=== PATIENT | male | born 1990 | race Caucasian/White ===

== ENCOUNTER 2016-07-30 02:16 | Observation (INO) | payer SELFPAY ==
[~2016-07-30] VITALS: Ht 175.3 cm; Wt 85.5 kg
--- NOTE | ~2016-07-30 | DS ---
PATIENT'S NAME: FLOWER CASTILLO [facility] AGE: 26 Y [address] ROOM: [address] [place], [place] [address] LOCATION: GPCU ADMIT DATE: 07/30/2016 Discharge Summary DISCHARGE DATE: 07/31/2016 FAMILY PHYSICIAN: Robbi Ramirez MD ATTENDING PHYSICIAN: Juan Fiore V PRINCIPAL DIAGNOSES: 1. Marueno and trazodone overdose. 2. Intentional suicide overdose. 3. History of bipolar disorder. HOSPITAL COURSE: A 26-year-old gentleman with a past medical history of bipolar disorder and suicide attempt, who was admitted to the [facility] after he took 40 tablets of 300 mg of lithium and 10 tablets of 100 mg of trazodone tablets for suicide attempt. Within 2 hours, activated charcoal was administered. Initial lithium levels were 3.1. He was admitted to the hospital for hemodynamic support. He was given intravenous IV fluids. One-to-one sitter was placed. Serial levels of lithium were obtained and on discharge lithium level was 0.6. He remained actively suicidal within the course of the hospitalization. The lab work was within normal limits. Psych consult was placed for Larry Calle for inpatient admission for this suicide attempt. DISCHARGE MEDICATIONS: None. These will all be reconciled and restarted by the psychiatrist at the [facility]. ACTIVITY: As tolerated. DIET: Regular diet. HEMODYNAMICS ON DISCHARGE: Stable. MD DOMINGO WOODALL/aleena /[id number] d: 08/01/16 0206 t: 08/06/16 1507, DISCHARGE SUMMARY
--- NOTE | ~2016-07-30 | HP ---
PATIENT'S NAME: FLOWER CASTILLO [facility] AGE: 26 Y [address] ROOM: [place] [address] LOCATION: GPCU ADMIT DATE: 07/30/2016 History & Physical DISCHARGE DATE: FAMILY PHYSICIAN: Robbi Ramirez MD ATTENDING PHYSICIAN: KEVIN BARRIENTOS V DATE OF SERVICE: CHIEF COMPLAINT: Intentional overdose. HISTORY OF PRESENT ILLNESS: The patient is a 26-year-old male with past medical history of bipolar II as well as prior suicide attempts. He had approximately five or six alcoholic beverages earlier last night and subsequently took the rest of his lithium and trazodone tablets. He approximates that he had approximately 40 of the 300 mg lithium and 10 of the 100 mg trazodone tablets. Subsequently to that he made a phone call to the family member and was taken to the ER at [facility]. There he was neurological intact but was found to have a lithium level of 4.48. Other substances were negative. He was transferred to [facility] for possibility of hemodialysis. At this point, the patient denies any nausea, vomiting, chest pain, shortness of breath, tremulous, anxiety, or hallucinations. In fact, he appears quite comfortable. He also denies any active suicidal ideations. REVIEW OF SYSTEMS: All systems have been reviewed and are negative aside from pertinent positives mentioned above. PAST MEDICAL HISTORY: Significant for type II bipolar as well as prior history of overdose, psychiatric hospitalization, as well as a history of dialysis due to "hydrocodone" overdose. SOCIAL HISTORY: The patient smokes approximately half a pack a day. He endorses social alcohol use and denies any illicit substance use. He resides with his boyfriend. CURRENT MEDICATIONS: 1. [place] 300 t.i.d. 2. Trazodone 100 nightly. FAMILY HISTORY: PATIENT'S NAME: FLOWER CASTILLO [facility] AGE: 26 Y [address] ROOM: [place] [address] LOCATION: GPCU ADMIT DATE: 07/30/2016 History & Physical DISCHARGE DATE: FAMILY PHYSICIAN: Robbi Ramirez MD ATTENDING PHYSICIAN: KEVIN BARRIENTOS V Reviewed and is noncontributory due to known underlying etiology for the patient's presentation. PHYSICAL EXAMINATION: VITAL SIGNS: At this point, his heart rate is 106, blood pressure 118/69, saturating 96% on room air, afebrile, respirations 16. GENERAL: Appears well-developed, well-nourished, pleasant, young male, in no acute distress. NEUROLOGIC: Nonfocal. There is no tremulousness or clonus, and normal reflexes. EYES: Pupils are equal and reactive to light. No nystagmus. LYMPHATIC: No cervical lymphadenopathy. ENDOCRINE: No thyromegaly. LUNGS: Clear to auscultation. HEART: Rate is slightly tachycardic and regular. GI: Abdomen is soft, nontender, and nondistended. : No costovertebral angle tenderness. VASCULAR: Reveals 2+ pedal pulses. MUSCULOSKELETAL: No muscle or joint abnormalities psychiatric exam reveals slightly depressed mood, but no active suicidal or homicidal ideations. LABORATORY DATA: Review of studies from the outside facility is significant for an EKG which shows sinus tachycardia of 125 beats per minute without any other significant abnormalities. Electrolyte panel is unremarkable. CBC is unremarkable. ASSESSMENT AND PLAN: This is a 26-year-old male who is being admitted with, 1. [place]/trazodone overdose. The patient did receive nasogastric lavage at [facility] as well as activated charcoal. We will begin aggressive hydration of this patient to treat his lithium overdose. We will check his lithium levels every 2 hours x3 and then will go to every 4 hours if the levels are trending down. I would not expect the charcoal to have treated his lithium ingestion as it will not absorb ions. It should have cleared his trazodone overdose, though we will observe for development of serotonin/neuroleptic malignant syndrome. We will consider dialysis if his lithium levels exceed 5 or if he is developing signs of neurologic/renal toxicity. We will also follow his thyroid function tests and serial electrolytes to rule out nephrogenic diabetes insipidus. 2. Suicide attempt. We will put the patient on one-to-one observation and request a psychiatric evaluation. 3. Bipolar II. We will obviously hold off on his current medications. 4. Deep venous thrombosis prophylaxis will be instituted if the patient stays in the hospital for longer than 48 hours. PATIENT'S NAME: FLOWER CASTILLO [facility] AGE: 26 Y [address] ROOM: [id number] [place], [place] [address] LOCATION: [facility] ADMIT DATE: 07/30/2016 History & Physical DISCHARGE DATE: FAMILY PHYSICIAN: Robbi Ramirez MD ATTENDING PHYSICIAN: KEVIN BARRIENTOS V 5. We will provide him with some symptomatic support with gentle doses of benzodiazepines if he grows too anxious. Additional management will depend on clinical course. Time dedicated to this patient's encounter is 35 minutes. MD SHERICE PLASCENCIA/aleena /[id number] D: [id number] T: [id number] HISTORY & PHYSICAL
[2016-07-30] MEDS ORDERED: DESYREL100 MG PO (03:02)
[2016-07-30] MEDS ORDERED: LITHIUM CARB300 MG PO (03:04)
[2016-07-30 04:05] LABS: BASOPHIL % 0.3 %; EOSINOPHIL # 0.1 K/uL (0.0-0.5); EOSINOPHIL % 0.8 %; HEMATOCRIT 47.3 % (37.0-53.0); HEMOGLOBIN 16.1 g/dL (12.0-17.0); IMMATURE GRANULOCYTE % 0.3 %; LYMPHOCYTE # 2.7 K/uL (0.8-4.0); LYMPHOCYTE % 27.7 %; MCH 29.3 pg (27.0-34.0); MONOCYTE # 0.5 K/uL (0.0-1.0); MONOCYTE % 5.3 %; NEUTROPHIL # (ANC) 6.3 K/uL (1.4-9.0); NEUTROPHIL % 65.6 %; NRBC % 0 /100WBC (0-0.00); PLATELET COUNT 255 K/uL (150-450); RDW-CV 12.1 % (11.9-14.6); WBC 9.7 K/uL (4.0-11.0)
[2016-07-30 04:20] LABS: ALBUMIN 4.5 gm/dL (3.5-5.0); ALK PHOS 77 IU/L (33-138); ALT 56 IU/L (12-78); ANION GAP 12.1 (10.0-19.0); AST 26 IU/L (10-40); BLOOD UREA NITROGEN 15 mg/dL (6-24); CALCIUM 9.1 mg/dL (8.5-10.5); CHLORIDE 107 mMol/L (96-110); CO2 24 mMol/L (22-32); ESTIMATED GFR (MDRD EQUATION) > 60; POTASSIUM 4.1 mMol/L (3.7-5.1); SODIUM 139 mMol/L (135-145); TOTAL BILIRUBIN 0.2 mg/dL (0.0-1.5); TOTAL PROTEIN 8.3 g/dL (6.0-8.4)
--- NOTE | 2016-07-30 04:26 | NUR ---
Patient is a 26yo male transferred here from [facility] for an overdose on lithium and trazodone. This is not the patient's first suicide attempt. While at [facility] he was given active charcoal through an NG and his stomach was pumped. Patient is A/Ox3. Calm and cooperative. VSS upon arrival: 97.5 temp, 118/72-91, 103bpm, 96% RA, 14 respirations. Patient has no complaints of pain at this time. Patient has a history of bipolar disorder and depression. Patient is currently in 1:1. No suicidal thoughts at this time but he states that they come and go.
[2016-07-30 04:33] LABS: BILIRUBIN URINE NEGATIVE (NEGATIVE); BLOOD URINE NEGATIVE /UL (NEGATIVE); COLOR URINE YELLOW (YELLOW); GLUCOSE URINE NEGATIVE (NEGATIVE); KETONE URINE NEGATIVE (NEGATIVE); LEUKOCYTES URINE NEGATIVE /UL (NEGATIVE); NITRITE URINE NEGATIVE (NEGATIVE); PROTEIN URINE NEGATIVE (NEGATIVE); TURBIDITY URINE CLEAR (CLEAR); UROBILINOGEN URINE NORMAL (NORMAL)
[2016-07-30 06:09] LABS: ANION GAP 10.4 (10.0-19.0); BLOOD UREA NITROGEN 13 mg/dL (6-24); CALCIUM 8.4 mg/dL (8.5-10.5); CHLORIDE 109 mMol/L (96-110); CO2 27 mMol/L (22-32); CREATININE 1.1 mg/dL (0.6-1.3); ESTIMATED GFR (MDRD EQUATION) > 60; POTASSIUM 4.4 mMol/L (3.7-5.1); SODIUM 142 mMol/L (135-145)
[2016-07-30 08:09] LABS: ANION GAP 10.1 (10.0-19.0); BLOOD UREA NITROGEN 14 mg/dL (6-24); CALCIUM 8.4 mg/dL (8.5-10.5); CHLORIDE 107 mMol/L (96-110); CO2 26 mMol/L (22-32); ESTIMATED GFR (MDRD EQUATION) > 60; POTASSIUM 4.1 mMol/L (3.7-5.1); SODIUM 139 mMol/L (135-145)
[2016-07-30] MEDS ORDERED: ZYPREXA10 MG PO (11:08)
--- NOTE | 2016-07-30 16:55 | NUR ---
Significant Event: VSS AND RA. AFEBRILE. DENIES PAIN. DENIES SUICIDAL THOUGHTS THIS SHIFT. LITHIUM LEVEL TRENDING DOWN NICELY. IVF'S CONTINUE PER MD ORDERS. VOIDS WELL WITH GOOD UOP, HR'S 110S BEGINNING OF SHIFT, DOWN TO THE 80S-LOW 100S END OF SHIFT. NO ECTOPY NOTED. POISON CONTROL CALLED AND UPDATE WAS GIVEN. 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 AMBULATES IN [place] SEVERAL LAPS THIS AFTERNOON ON TELEMETRY. FAMILY IN TO VISIT FOR A COUPLE OF HOURS THIS AFTERNOON, NO CONCERNS NOTED. PSYCH CONSULT PLACED. Follow up: CONTINUE PLAN OF CARE; PSYCH CONSULT; ? D/C [facility].
[2016-07-30 20:14] LABS: ANION GAP 12.1 (10.0-19.0); BLOOD UREA NITROGEN 17 mg/dL (6-24); CALCIUM 8.6 mg/dL (8.5-10.5); CHLORIDE 106 mMol/L (96-110); CO2 26 mMol/L (22-32); CREATININE 0.9 mg/dL (0.6-1.3); ESTIMATED GFR (MDRD EQUATION) > 60; POTASSIUM 4.1 mMol/L (3.7-5.1); SODIUM 140 mMol/L (135-145)
--- NOTE | 2016-07-31 03:42 | NUR ---
Significant Event: VSS on RA. Afebrile. Tachycardia while awake. HR's 80-100's this shift. SBP's in 140's. No complaints of pain this shift. Denies suicidal thoughts this shift. 1:1 AIRCRAFT SERVICER observation continues. Ambulates with SBA. LR running at 150 mls/hr to L) AC. Portable telemetry. Psych consult in place. Follow up: Psych consult. Possible discharge today.
[2016-07-31 07:51] LABS: ANION GAP 10.4 (10.0-19.0); BLOOD UREA NITROGEN 12 mg/dL (6-24); CALCIUM 8.5 mg/dL (8.5-10.5); CHLORIDE 107 mMol/L (96-110); CO2 27 mMol/L (22-32); ESTIMATED GFR (MDRD EQUATION) > 60; POTASSIUM 4.4 mMol/L (3.7-5.1); SODIUM 140 mMol/L (135-145)
--- NOTE | 2016-07-31 12:35 | NUR ---
PATIENT TRANSFERING TO [facility] TODAY WITH [facility] OFFICER. PATIENT HAS BEEN 1:1 AT BEDSIDE FOR SUICIDE PRECAUTIONS. PATIENT IS A/O X3, COOPERATIVE WITH CARES. PATIENT IS STAND BY ASSIST, UP IN ROOM, SHOWERED TODAY. NO C/O PAIN OR NAUSEA. LAST VITALS HR 82, TEMP 97.6, RR 20, BP 142/84, SATS 95% ON RA. REPORT CALLED TO CELIA GARZA AT [facility]. POISON CONTROL CALLED THIS AM AND WAS UPDATED ON LABS.
--- NOTE | 2016-07-31 14:18 | NUR ---
GREG Jaime informed me this morning that Dr. Myers had rounded and filled out orders for Tato to go to [facility] as soon as I could get him a bed there. I called and talked with Kaley at [facility]. Kaley states that they are able to take patients today and that Tato would be a direct admission to them based on his diagnosis. She stated once RN to RN report is called, then she will phone me back with final acceptance. I stopped up to Tato's chart and reviewed the information. No formal EPC paperwork was on the chart, however, I did see that [facility] was involved at [place] with Tato yesterday when he came to them so I went ahead and called to [facility]. I talked with keegan Esquivel #[id number], he states after reveiwing the information and going over the other officers notes from Tato's case, he does feel like he should be under an EPC. I let him know that I did need EPC paperwork on file so that I was able to confirm that he was Jose was EPC'd by [facility] Shar[facility]. I also informed Blaze Conway that they would need to either come and transport Jose to [facility] since he was EPC or work with [facility] to do a courtesy transfer for them. Blaze Conway let me know that he would be contacting [facility] to do the transfer for him. In the meantime, I did get a copy of the EPC paperwork and I also confirmed with Kaley that they got a copy as well. Blaze Conway phoned me back, states that he had talked with Blaze Branham at [facility], and they are willing to do the transfer for them over to [facility]. RN to RN report was called over to [facility] Adult [facility] by GREG Jaime. I got a call from Kaley that doctor had accepted so we were a go to send Jose over to [facility]. After this, I did go into [facility]'s room. Introduced self and CM role to him. Explained all the above to him. He was in agreement with going to [facility] and did voice that he was fine with [facility] transporting. He did ask for a shirt to wear over to [facility] so this CM did obtain one for him and gave it to him before dismissal. Once all the paperwork for dismissal was completed and Jose was dressed, I phoned over to 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 We planned a dismissal time of 1300 today. GREG Jaime aware of this. Also updated rim fire charger operator Jade as well. CM to continue to follow and assist. Plan for transfer to [facility] today.
--- NOTE | 2016-07-31 14:29 | NUR ---
PATIENT TRANSFERED TO [facility] AT 13:15 WITH [facility] OFFICER AND ERIKA GARZA, NURSE LEADER FROM PCU. TRANSFER PACKET SENT WITH PATIENT. PATIENT CALM AND COOPERATIVE.
[2016-08-03] MEDS ORDERED: PROZAC20 MG PO (10:09)
[2016-08-03] MEDS ORDERED: VISTARIL50 MG PO (10:15)
[2016-08-03] MEDS ORDERED: NICORETTE 2 MG2 MG PO (10:17)
[2016-10-30] MEDS ORDERED: DESYREL100 MG PO (16:45)
[2016-10-30] MEDS ORDERED: INDERAL40 MG PO (16:46)
[2016-11-01] MEDS ORDERED: NICODE TOP (12:04)
== END 2016-07-31 13:20 ==
LOC: GPCU 02:16
PROVIDERS: Internal Medicine; ADMIT Internal Medicine
DX: T56.892A Toxic effect of other metals, intentional self-harm, initial encounter (principal); T43.212A Poisoning by selective serotonin and norepinephrine reuptake inhibitors, intentional self-harm, initial encounter; F31.81 Bipolar II disorder; F17.210 Nicotine dependence, cigarettes, uncomplicated; Z91.5 Personal history of self-harm
CPT/HCPCS: G0378; G0480; J7030; J7120